=== PATIENT | male | born 1990 | race Hispanic/Latino ===

== ENCOUNTER 2021-03-28 08:55 | Emergency (ER) | payer OTHER ==
[~2021-03-28] VITALS: Ht 180.3 cm; Wt 110.0 kg
[2021-03-28] MEDS ORDERED: NS 1,000 ML IV ONE (09:10)
[2021-03-28 10:30] VITALS: BP 127/66
== END 2021-03-28 10:37 | disposition home or self-care (01) ==
LOC: EDBD 08:55 → M ED 08:55
DX: R55 Syncope and collapse (principal); E86.0 Dehydration

== ENCOUNTER 2021-09-30 09:02 | Emergency (ER) | payer OTHER ==
[~2021-09-30] VITALS: Ht 180.3 cm; Wt 110.8 kg
[2021-09-30] MEDS ORDERED: [UNRECOGNIZED DRUG - OTHER] TOP (09:25)
[2021-09-30] MEDS ORDERED: MELO15TA28 PO (09:25)
[2021-09-30] MEDS ORDERED: BACT800T5 PO (09:25)
[2021-09-30] MEDS ORDERED: DOXY-443 PO (11:45)
[2021-09-30] MEDS ORDERED: CIPR0.2S OTIC (11:45)
[2021-09-30 12:09] VITALS: BP 167/104
== END 2021-09-30 12:10 | disposition home or self-care (01) ==
LOC: M ED 09:02
DX: L73.9 Follicular disorder, unspecified (principal); H60.91 Unspecified otitis externa, right ear

== ENCOUNTER 2021-11-21 08:44 | Emergency (ER) | payer OTHER ==
[~2021-11-21] VITALS: Ht 180.3 cm; Wt 110.5 kg
[2021-11-21 08:44] VITALS: BP 142/81
[~2021-11-21 08:44] MED LIST: BACT800T5 PO; CIPR0.2S OTIC; DOXY-443 PO; MELO15TA28 PO; [UNRECOGNIZED DRUG - OTHER] TOP
[2021-11-21] MEDS ORDERED: ONDANSETRON 4 MG ORAL DISINTEGRATING TAB PO ONE (12:05)
[2021-11-21] MEDS ORDERED: ACETAMINOPHEN 500 MG TAB PO ONE (12:05)
== END 2021-11-21 12:20 | disposition home or self-care (01) ==
LOC: M ED 08:44
DX: S06.0X0A Concussion without loss of consciousness, initial encounter (principal); S00.83XA Contusion of other part of head, initial encounter; W00.9XXA Unspecified fall due to ice and snow, initial encounter; Y92.89 Other specified places as the place of occurrence of the external cause; Y93.9 Activity, unspecified; Y99.1 Military activity
CPT/HCPCS: 70450; 70480; 99282; Q0162

== ENCOUNTER 2023-09-09 06:31 | Emergency (ER) | payer OTHER ==
[~2023-09-09] VITALS: Ht 182.9 cm; Wt 106.5 kg
[2023-09-09] MEDS ORDERED: ONDANSETRON 4MG 2ML VIAL IV ONE (09:05)
[2023-09-09] MEDS ORDERED: LOPERAMIDE 2 MG CAPLET PO ONE (09:05)
[2023-09-09] MEDS ORDERED: NS 1,000 ML IV ONE (09:05)
[2023-09-09 09:51] LABS: RSV AMPLIFICATION NEGATIVE (NEGATIVE)
[2023-09-09 09:56] LABS: BASO % 0.5 % (0.0-1.0); EOS # 0.1 10^3/uL (0.0-0.5); EOS % 0.9 % (0.0-3.0); HEMATOCRIT 44.4 % (42.0-52.0); HEMOGLOBIN 15.2 g/dl (13.5-17.5); LYMPH # 1.7 10^3/uL (1.5-5.0); LYMPH % 21.1 % (24.0-44.0); MEAN CORPUSCULAR HEMOGLOBIN 29.1 pg (27.0-33.0); MEAN CORPUSCULAR HGB CONC 34.2 g/dl (32.0-36.5); MEAN CORPUSCULAR VOLUME 85.1 fl (80.0-96.0); MONO # 0.5 10^3/uL (0.0-0.8); MONO % 5.9 % (2.0-8.0); NEUTROPHILS # 5.8 10^3/uL (1.5-8.5); NEUTROPHILS % 71.4 % (36.0-66.0); PLATELET COUNT, AUTOMATED 309 10^3/uL (150-450); RED BLOOD COUNT 5.22 10^6/uL (4.30-6.10); WHITE BLOOD COUNT 8.2 10^3/uL (4.0-10.0)
[2023-09-09 10:23] LABS: ALBUMIN 3.8 G/DL (3.2-5.2); ALKALINE PHOSPHATASE 181 U/L (46-116); ALT/SGPT 29 U/L (7.0-40); AST/SGOT 17 U/L (<34); BILIRUBIN,TOTAL 0.4 MG/DL (0.3-1.2); BLOOD UREA NITROGEN 17 MG/DL (9-23); CALCIUM LEVEL 8.7 MG/DL (8.5-10.1); CARBON DIOXIDE LEVEL 26 MMOL/L (20-31); CHLORIDE LEVEL 108 MMOL/L (98-107); CREATININE FOR GFR 1.14 MG/DL (0.70-1.30); GLOMERULAR FILTRATION RATE > 60.0 (>60); GLUCOSE, FASTING 93 MG/DL (60-100); POTASSIUM SERUM 3.9 MMOL/L (3.5-5.1); SODIUM LEVEL 141 MMOL/L (136-145); TOTAL PROTEIN 7.2 G/DL (5.7-8.2)
[2023-09-09] MEDS ORDERED: ONDA4TAB6 PO (11:32)
[2023-09-09 11:54] VITALS: BP 129/71; TEMP 98; O2SAT 99
== END 2023-09-09 12:15 | disposition home or self-care (01) ==
LOC: M ED 06:31
DX: U07.1 COVID-19 (principal); Z79.83 Long term (current) use of bisphosphonates
CPT/HCPCS: 80053; 85025; 87631; 96361; 96374; 99284; J2405

== ENCOUNTER → 2023-10-19 | Outpatient (CLI) | payer OTHER ==
[~2023-10-19] MED LIST changes: +ISOVUE-300 61% 100ML VIAL As Ordered ONE; +LIDOCAINE 1% MDV 20ML VIAL As Ordered ONE; +ONDA4TAB6 PO; +PROHANCE 279.3MG/ML 5ML VIAL As Ordered ONE
== END ==
LOC: M RAD 07:00
PROVIDERS: ATTEND Physician Assistant
DX: M25.512 Pain in left shoulder (principal)
CPT/HCPCS: 23350; 73223; 77002; A9576; Q9967

== ENCOUNTER → 2024-07-26 | Outpatient (CLI) | payer OTHER ==
[~2024-07-26] MED LIST changes: +DOXY-441 PO; -DOXY-443 PO; -ISOVUE-300 61% 100ML VIAL As Ordered ONE; -LIDOCAINE 1% MDV 20ML VIAL As Ordered ONE; +ONDA-282 PO; -ONDA4TAB6 PO; -PROHANCE 279.3MG/ML 5ML VIAL As Ordered ONE
== END ==
LOC: M WUC 11:30
PROVIDERS: ATTEND Physician Assistant
DX: M10.072 Idiopathic gout, left ankle and foot (principal)

== ENCOUNTER 2025-08-14 11:23 | Emergency (ER) | payer OTHER ==
[~2025-08-14] VITALS: Ht 177.8 cm; Wt 112.7 kg
[2025-08-14] MEDS ORDERED: [UNRECOGNIZED DRUG - CODE] (11:33)
[2025-08-14] MEDS: PROPARACAINE 0.5% OPHTH SOL 15ML OU ONE (12:41)
[2025-08-14] MEDS: FLUORESCEIN OPHTH 1 MG STRIP OU ONE (12:42)
[2025-08-14] MEDS ORDERED: IBUP600T42 PO (13:03)
[2025-08-14] MEDS ORDERED: OFLO5DRO OU (13:03)
[2025-08-14 13:07] VITALS: BP 150/86; TEMP 97.9; O2SAT 100
== END 2025-08-14 13:16 | disposition home or self-care (01) ==
LOC: M ED 11:23
DX: H16.133 Photokeratitis, bilateral (principal); T26.41XA Burn of right eye and adnexa, part unspecified, initial encounter; T26.42XA Burn of left eye and adnexa, part unspecified, initial encounter; Z79.1 Long term (current) use of non-steroidal anti-inflammatories (NSAID); Z79.899 Other long term (current) drug therapy